=== PATIENT | male | born 1945 | race Caucasian/White ===

== ENCOUNTER 2017-10-03 09:41 | Inpatient (IN) | payer MEDICARE, OTHER ==
[~2017-10-03] VITALS: Ht 172.7 cm; Wt 106.3 kg
[~2017-10-03 09:41] MED LIST: ACTOS30 MG PO; ASPIR-LOW81 MG PO; CAPOTEN12.5 MG PO; CIPRO 250MG TA250 MG PO; COLACE 100100 MG/CAP PO; FORTAMET500 MG PO; GEMCOR600 MG PO; LASIX 40MG TABL40 MG PO; PERCOCET 5/321 UDTAB PO
[2017-10-03 10:38] LABS: INR 1.2 (0.8-3.0); PROTHROMBIN TIME 14.5 SECONDS (9.7-12.8)
[2017-10-03 10:40] LABS: POTASSIUM 4.5 mmol/L (3.4-5.0)
[2017-10-03 11:06] VITALS: BP 128/80; PULSE 110; TEMP 97.5
[2017-10-03 11:09] LABS: CALCIUM 9.5 mg/dL (8.4-10.2); CREATININE, serum 1.24 mg/dL (0.66-1.25); POTASSIUM 4.6 mmol/L (3.4-5.0)
[2017-10-03 11:15] LABS: THYROID STIMULATING HORMONE 1.81 uIU/mL (0.465-4.680)
[2017-10-03] MEDS ORDERED: GLUCOPHAGE500 MG/TAB PO (11:15)
[2017-10-03] MEDS ORDERED: JARDIANCE10 PO (11:15)
[2017-10-03] MEDS ORDERED: TOPROL XL100 MG PO ×2 (11:20→14:53)
[2017-10-03] MEDS ORDERED: MULTIPLE VITAMI1 CAP PO (11:21)
[2017-10-03] MEDS ORDERED: REVATIO20 MG PO (11:21)
[2017-10-03] MEDS ORDERED: OCUVITE1 TA1 PO (11:21)
[2017-10-03] MEDS ORDERED: ELIQUIS 5MG PO (11:22)
[2017-10-03] MEDS ORDERED: ZOCOR 40MG40 MG PO (11:22)
[2017-10-03 11:29] LABS: HEMOGLOBIN 17.4 g/dl (13.5-18.0); MEAN CELL VOLUME 91 fl (80.0-100.0); MEAN CORPUSCULAR HEMOGLOBIN 30 pg (27.0-31.0); MEAN CORPUSCULAR HGB CONC 33 g/dl (33.0-37.0); MEAN PLATELET VOLUME 11.6 fl (7.4-10.4); PLATELET COUNT 257 K/mm3 (130-400); RED BLOOD COUNT 5.73 M/mm3 (4.20-5.60); REDCELL DISTRIBUTION WIDTH-CV 12.8 % (11.5-14.5)
[2017-10-03 11:31] LABS: HEMATOCRIT 52.4 % (42.0-52.0)
[2017-10-03 11:37] VITALS: BP 134/92; PULSE 78
[2017-10-03 11:43] VITALS: BP 118/80; PULSE 73
[2017-10-03 12:57] VITALS: BP 134/82; PULSE 71; TEMP 97.4
[2017-10-03] MEDS ORDERED: LANTUS SOLOS100 U/ML SQ (14:50)
[2017-10-03] MEDS ORDERED: DIABETA 5MG5 MG/TAB PO (14:50)
[2017-10-03] MEDS ORDERED: JANUVIA 100MG100 MG PO (14:51)
[2017-10-03] MEDS ORDERED: AMOXICILLIN875 MG PO (14:51)
[2017-10-03] MEDS ORDERED: ASPIRIN 81M81 MG/TA2 PO (14:53)
[2017-10-03] MEDS ORDERED: TRICOR145 MG PO (14:54)
[2017-10-03] MEDS ORDERED: CAPOTEN 25MG25 MG PO (14:54)
[2017-10-03 16:00] VITALS: BP 153/90; PULSE 70; TEMP 97.6
[2017-10-03 20:06] VITALS: BP 128/70; PULSE 69; TEMP 98.2
[2017-10-04 01:00] VITALS: BP 133/68; PULSE 58; TEMP 97.5
[2017-10-04 04:07] VITALS: BP 132/70; PULSE 59; TEMP 97.8
[2017-10-04 07:15] LABS: INR 1.2 (0.8-3.0); PROTHROMBIN TIME 13.7 SECONDS (9.7-12.8)
[2017-10-04 09:54] VITALS: BP 122/66; PULSE 62; TEMP 97.6
[2017-10-04 11:54] VITALS: BP 141/72; PULSE 87; TEMP 97.8
[2017-10-04 15:42] VITALS: BP 151/83; PULSE 58; TEMP 97.3
[2017-10-04 19:34] VITALS: BP 158/88; PULSE 58; TEMP 97.3
[2017-10-05 00:53] VITALS: BP 155/85; PULSE 55; TEMP 97.2
[2017-10-05 04:07] VITALS: BP 167/76; PULSE 55; TEMP 97.4
[2017-10-05 07:14] LABS: CALCIUM 8.7 mg/dL (8.4-10.2); CREATININE, serum 1.07 mg/dL (0.66-1.25); MAGNESIUM 2.2 mg/dL (1.6-2.3); POTASSIUM 3.7 mmol/L (3.4-5.0)
[2017-10-05 08:04] VITALS: BP 130/87; PULSE 54; TEMP 98.5
[2017-10-05] MEDS ORDERED: BETAPACE 80MG80 MG PO (12:10)
[2017-10-05] MEDS ORDERED: CAPOTEN 25MG25 MG PO (12:11)
== END 2017-10-05 12:41 | disposition home or self-care (01) | DRG 310 ==
LOC: COL.CAR 09:41 → MEDICAL 13:12 → COL.CAR 16:21 → MEDICAL 16:26
PROVIDERS: Internal Medicine Cardiovascular Disease; Nurse Practitioner
PROC: 5A2204Z Restoration of Cardiac Rhythm, Single (ICD-10-PCS; principal; 2017-10-03)
DX: I48.0 Paroxysmal atrial fibrillation (principal); I25.10 Atherosclerotic heart disease of native coronary artery without angina pectoris; I10 Essential (primary) hypertension; E11.9 Type 2 diabetes mellitus without complications; Z87.891 Personal history of nicotine dependence
CPT/HCPCS: J1815

== ENCOUNTER 2017-11-20 08:50 | Day surgery (SDC) | payer OTHER ==
[~2017-11-20] VITALS: Ht 172.7 cm; Wt 104.5 kg
[~2017-11-20 08:50] MED LIST changes: +AMOXICILLIN875 MG PO; +ASPIRIN 81M81 MG/TA2 PO; +BETAPACE 80MG80 MG PO; +CAPOTEN 25MG25 MG PO; +DIABETA 5MG5 MG/TAB PO; +ELIQUIS 5MG PO; +GLUCOPHAGE500 MG/TAB PO; +JANUVIA 100MG100 MG PO; +JARDIANCE10 PO; +LANTUS SOLOS100 U/ML SQ; +MULTIPLE VITAMI1 CAP PO; +OCUVITE1 TA1 PO; +REVATIO20 MG PO; +TOPROL XL100 MG PO; +TRICOR145 MG PO; +ZOCOR 40MG40 MG PO
[2017-11-20 09:14] LABS: POTASSIUM 4.5 mmol/L (3.4-5.0)
[2017-11-20 09:20] VITALS: BP 134/112; PULSE 121; TEMP 97.8
[2017-11-20 09:49] LABS: THYROID STIMULATING HORMONE 2.64 uIU/mL (0.465-4.680)
[2017-11-20 10:34] VITALS: BP 154/113; PULSE 117
[2017-11-20] MEDS ORDERED: BETAPACE 80MG80 MG PO (10:43)
[2017-11-20 10:58] VITALS: BP 156/92; PULSE 78; TEMP 98.7
[2017-11-20 11:13] VITALS: BP 128/82; PULSE 72; TEMP 98.1
[2017-11-20 12:00] VITALS: BP 130/89; PULSE 75; TEMP 98
== END 2017-11-20 12:00 | disposition home or self-care (01) ==
LOC: COL.CAR 08:50
PROVIDERS: Internal Medicine Cardiovascular Disease
DX: I48.0 Paroxysmal atrial fibrillation (principal); I25.10 Atherosclerotic heart disease of native coronary artery without angina pectoris; I10 Essential (primary) hypertension; E11.9 Type 2 diabetes mellitus without complications; E78.00 Pure hypercholesterolemia, unspecified; Z79.01 Long term (current) use of anticoagulants; Z95.5 Presence of coronary angioplasty implant and graft; Z79.84 Long term (current) use of oral hypoglycemic drugs; Z87.891 Personal history of nicotine dependence
CPT/HCPCS: J2250; J3010; J7030

== ENCOUNTER 2017-11-28 12:14 | Day surgery (SDC) | payer OTHER, MEDICARE ==
[~2017-11-28] VITALS: Ht 172.8 cm; Wt 106.0 kg
[2017-11-28 12:28] LABS: HEMOGLOBIN 16.9 g/dl (13.5-18.0); MEAN CELL VOLUME 91 fl (80.0-100.0); MEAN CORPUSCULAR HEMOGLOBIN 29 pg (27.0-31.0); MEAN CORPUSCULAR HGB CONC 32 g/dl (33.0-37.0); PLATELET COUNT 289 K/mm3 (130-400); RED BLOOD COUNT 5.74 M/mm3 (4.20-5.60); REDCELL DISTRIBUTION WIDTH-CV 13.3 % (11.5-14.5)
[2017-11-28 12:29] LABS: HEMATOCRIT 52.3 % (42.0-52.0)
[2017-11-28 12:33] LABS: INR 1.1 (0.8-3.0)
[2017-11-28 12:38] LABS: CALCIUM 9.6 mg/dL (8.4-10.2); CREATININE, serum 1.32 mg/dL (0.66-1.25); POTASSIUM 4.8 mmol/L (3.4-5.0)
[2017-11-28 13:39] VITALS: BP 152/105; PULSE 130; TEMP 97.2
[2017-11-28] MEDS ORDERED: MULTAQ400 MG PO (14:54)
[2017-11-28 15:15] VITALS: BP 129/97; PULSE 113
[2017-11-28 15:30] VITALS: BP 123/95; PULSE 107
[2017-11-28 16:00] VITALS: BP 156/109; PULSE 111
== END 2017-11-28 16:30 | disposition home or self-care (01) ==
LOC: COL.CAR 12:14
PROVIDERS: Internal Medicine Cardiovascular Disease
DX: I48.0 Paroxysmal atrial fibrillation (principal); I48.91 Unspecified atrial fibrillation; I10 Essential (primary) hypertension; I25.10 Atherosclerotic heart disease of native coronary artery without angina pectoris; E78.00 Pure hypercholesterolemia, unspecified; Z79.01 Long term (current) use of anticoagulants; Z79.82 Long term (current) use of aspirin; I34.0 Nonrheumatic mitral (valve) insufficiency; R60.0 Localized edema; Z79.4 Long term (current) use of insulin
CPT/HCPCS: J0282; J7030

== ENCOUNTER 2017-12-24 11:31 | Day surgery (SDC) | payer OTHER ==
[~2017-12-24] VITALS: Ht 172.9 cm; Wt 99.9 kg
[~2017-12-24 11:31] MED LIST changes: +MULTAQ400 MG PO
[2017-12-24 12:31] LABS: HEMATOCRIT 47.1 % (42.0-52.0); HEMOGLOBIN 15.7 g/dl (13.5-18.0); MEAN CELL VOLUME 89 fl (80.0-100.0); MEAN CORPUSCULAR HEMOGLOBIN 30 pg (27.0-31.0); MEAN CORPUSCULAR HGB CONC 33 g/dl (33.0-37.0); MEAN PLATELET VOLUME 11.2 fl (7.4-10.4); PLATELET COUNT 209 K/mm3 (130-400); RED BLOOD COUNT 5.28 M/mm3 (4.20-5.60); REDCELL DISTRIBUTION WIDTH-CV 12.8 % (11.5-14.5)
[2017-12-24 12:40] LABS: CALCIUM 10.1 mg/dL (8.4-10.2); CREATININE, serum 2.11 mg/dL (0.66-1.25); POTASSIUM 4.8 mmol/L (3.4-5.0)
[2017-12-24 12:45] VITALS: BP 152/85; TEMP 97.7
[2017-12-24 12:46] LABS: INR 1.2 (0.8-3.0); PROTHROMBIN TIME 13.1 SECONDS (9.7-12.8)
[2017-12-24] MEDS ORDERED: K-DUR20 MEQ PO (12:58)
[2017-12-24] MEDS ORDERED: LASIX 40MG TABL40 MG PO (12:59)
[2017-12-24] MEDS ORDERED: ZOCOR 40MG40 MG PO (12:59)
[2017-12-24] MEDS ORDERED: CORDARONE200 MG/TAB PO (13:00)
[2017-12-24] MEDS ORDERED: GLUCOPHAGE1000 MG PO (13:02)
[2017-12-24] MEDS ORDERED: JARDIANCE10 PO (13:03)
[2017-12-24] MEDS ORDERED: TOPROL XL100 MG PO (13:04)
[2017-12-24] MEDS ORDERED: PRINIVIL40 MG PO (13:06)
[2017-12-24] MEDS ORDERED: TIAZAC240 MG PO (13:06)
[2017-12-24 13:30] VITALS: BP 127/75; PULSE 61
[2017-12-24 13:45] VITALS: BP 128/76; PULSE 64
[2017-12-24 14:00] VITALS: BP 131/79; PULSE 62; TEMP 97.5
== END 2017-12-24 15:37 | disposition home or self-care (01) ==
LOC: COL.CAR 11:31
PROVIDERS: Internal Medicine Cardiovascular Disease
DX: I48.0 Paroxysmal atrial fibrillation (principal); I50.33 Acute on chronic diastolic (congestive) heart failure; I11.0 Hypertensive heart disease with heart failure; I42.8 Other cardiomyopathies; I34.0 Nonrheumatic mitral (valve) insufficiency; Z87.891 Personal history of nicotine dependence; Z79.01 Long term (current) use of anticoagulants; Z79.82 Long term (current) use of aspirin; E78.00 Pure hypercholesterolemia, unspecified; I25.10 Atherosclerotic heart disease of native coronary artery without angina pectoris; Z98.61 Coronary angioplasty status; E11.9 Type 2 diabetes mellitus without complications; E78.5 Hyperlipidemia, unspecified; Z79.4 Long term (current) use of insulin; Z79.899 Other long term (current) drug therapy; I38 Endocarditis, valve unspecified; R06.83 Snoring
CPT/HCPCS: J2704; J7030

== ENCOUNTER 2019-09-18 16:10 | Inpatient (IN) | payer MEDICARE, OTHER ==
[~2019-09-18] VITALS: Ht 172.7 cm; Wt 107.2 kg
[~2019-09-18 16:10] MED LIST changes: +CORDARONE200 MG/TAB PO; +GLUCOPHAGE1000 MG PO; +K-DUR20 MEQ PO; +LASIX 20MG TABL20 MG PO; +PRINIVIL40 MG PO; +TIAZAC120 MG PO; +ZOCOR 80MG80 MG PO
[2019-09-18 18:17] VITALS: BP 134/97; PULSE 99; TEMP 98
[2019-09-18] MEDS ORDERED: LIPITOR 40MG TA40 MG PO (20:41)
[2019-09-18] MEDS ORDERED: TYLENOL 325MG325 MG PO (20:44)
[2019-09-18] MEDS ORDERED: DULCOLAX STOOL100 MG PO (20:46)
[2019-09-18] MEDS ORDERED: LEADER CLE17 GM/Dose PO (20:47)
[2019-09-18] MEDS ORDERED: ZOFRAN ODT4 MG PO (20:47)
[2019-09-18] MEDS ORDERED: HUMALOG100 U/ML SQ (20:50)
[2019-09-18] MEDS ORDERED: MELATONIN5 M1 PO (20:52)
--- NOTE | 2019-09-18 22:00 | NUR ---
RT HERE FOR CPAP. PLAN FOR TO BRING CPAP TOMORROW.
[2019-09-19 04:43] VITALS: BP 142/88; PULSE 92; TEMP 97.5
--- NOTE | 2019-09-19 05:20 | NUR ---
PT AWAKE. TOOK CPAP OFF FOR THE DAY. DENIES PAIN. WATCHING TV. USING URINAL. OCCASIONALLY SPILLS URINAL. DRY AT THIS TIME. CALL LIGHT IN PLACE. BED ALARM SET.
--- NOTE | 2019-09-19 07:57 | NUR ---
Bedside report from CHRISTINE Witt. Pt in bed sitting up for breakfast, call lt in reach, glasses in reach, yellow gown and band and socks in place, alarm on. Ate 100 %, denies pain, no difficulties with food or several pills at a time.
[2019-09-19 08:11] LABS: BASO # 0.1 (0.0-0.2); BASO % 0.6 % (0.0-2.0); EOS # 0.2 (0.0-0.7); EOS % 2.1 % (0-4.0); GRAN # 5.8 (1.4-6.5); GRAN % 59.7 % (42.2-75.2); HEMATOCRIT 44.4 % (42.0-52.0); HEMOGLOBIN 14.7 g/dl (13.5-18.0); LYMPH # 2.4 (1.2-3.4); MEAN CELL VOLUME 90 fl (80.0-100.0); MEAN CORPUSCULAR HEMOGLOBIN 30 pg (27.0-31.0); MEAN CORPUSCULAR HGB CONC 33 g/dl (33.0-37.0); MEAN PLATELET VOLUME 10.3 fl (7.4-10.4); MONO # 1.1 (0.1-0.6); MONO % 11.7 % (1.7-9.3); PLATELET COUNT 365 K/mm3 (130-400); RED BLOOD COUNT 4.91 M/mm3 (4.20-5.60); REDCELL DISTRIBUTION WIDTH-CV 12.4 % (11.5-14.5)
[2019-09-19 08:27] LABS: CALCIUM 9.6 mg/dL (8.4-10.2); CREATININE, serum 1.61 (0.66-1.25); POTASSIUM 3.8 mmol/L (3.4-5.0)
--- NOTE | 2019-09-19 10:50 | NUR ---
Initial visit attempt; Patient Chaplain martin left her card with God's blessings on his bed table.
--- NOTE | 2019-09-19 14:28 | NUR ---
Student Affairs Vice President met with patient to complete initial intake as patient is new to [facility]. Patient lives in [place] with his , Zulma (ph#[phone] or [phone]). Patient [address]. Luo for primary care and obtains medications from [facility] pharmacy in [place] with no difficulties. Patient uses a CPAP and not other DME at home. Patient does not have Advance Directives in place and may be interested in getting assistance with this during stay. SW to continue to follow.
[2019-09-19 17:38] VITALS: BP 134/77; PULSE 70; TEMP 97.6
--- NOTE | 2019-09-19 20:00 | NUR ---
PATIENT RESTING IN BED DURING SHIFT CHANGE REPORT FROM DAY SHIFT NURSE. BED ALARM ENGAGED. PATIENT DENIES ANY NEEDS AT TIME OF REPORT.
--- NOTE | 2019-09-19 20:20 | NUR ---
Prior to bedside report to CHRISTINE Coulter. Pt was assisted from chair to BSC with 2 assist and lift, only passed gas, was incont of urine, changed, to bed with lift, SCDs to BLE, glasses removed, pt ok'd 4 bedrails up, alarm on, call lt in reach, A&O, pleasantly cooperative and conversational. Family visited this morning. Pt denies pain. Weakness to Left side extremities. Good appetite, adv to regular consistency diet today per ST.
--- NOTE | 2019-09-20 03:29 | NUR ---
RESTING WITH EYES CLOSED, BED ALARM ENGAGED, AWAKENS WITH ENTERING IN ROOM, DENIES ANY NEEDS WHEN AWAKEN
[2019-09-20 04:55] VITALS: BP 138/83; PULSE 77; TEMP 97.1
--- NOTE | 2019-09-20 07:24 | NUR ---
PATIENT RESTING IN BED DURING SHIFT CHANGE REPORT GIVEN TO DAY SHIFT NURSE. BED ALARM ENGAGED
--- NOTE | 2019-09-20 11:44 | NUR ---
Patient attended all therapies this morning. He is currently resting in recliner at this time, call light in reach and denies any pain. He did report being very tired following his therapy. Will continue to monitor.
[2019-09-20 18:20] VITALS: BP 135/83; PULSE 72; TEMP 97.9
--- NOTE | 2019-09-20 18:30 | NUR ---
Patient attended all therapies today. This nurse placed an air mattress on bed this afternoon. He was a full body lift this shift. He was very weak upon his return from therapy today. Was very sleepy through day reporting that he can sleep anywhere. He was set up for his meals. Was very talkative this talking about his family life.
--- NOTE | 2019-09-20 20:00 | NUR ---
PATIENT RESTING IN BED DURING SHIFT CHANGE REPORT FROM DAY SHIFT NURSE. BED ALARM ENGAGED. DENIES ANY NEEDS OR COMPLAINTS.
--- NOTE | 2019-09-21 00:30 | NUR ---
RESTING IN BED, AWAKE, WATCHING TV, DENIES ANY DISCOMFORT OR NEEDS. BED ALARM ENGAGED
--- NOTE | 2019-09-21 02:38 | NUR ---
PATIENT AWAKE WATCHING TV, REPORTS HE SLEEPS FOR SHORT PERIODS THROUGH NIGHT. BED ALARM ON. DENIES ANY COMPLAINTS OR NEEDS AT THIS TIME.
[2019-09-21 05:11] VITALS: BP 136/81; PULSE 67; TEMP 98.3
--- NOTE | 2019-09-21 07:36 | NUR ---
PATIENT RESTING IN BED DURING SHIFT CHANGE REPORT GIVEN TO DAY SHIFT NURSE. BED ALARM ON.
--- NOTE | 2019-09-21 11:28 | NUR ---
Two staff members used a sit to stand to transfer patient this morning from bed to wheelchair. Patient was incontinent of urine and was cleaned up and new brief was put on. Patient wanted to do his grooming at the sink. He was a set up and required staff to put the toothpaste on his toothbrush. He denied any pain this morning. Patient was just a two person transfer from wheelchair to recliner using gait belt and walker. He is currently resting in recliner eating one of his [employer] candy bars.
[2019-09-21 17:33] VITALS: BP 141/80; PULSE 78; TEMP 97.3
--- NOTE | 2019-09-21 19:00 | NUR ---
PATIENT UP IN CHAIR DURING SHIFT CHANGE REPORT FROM DAY SHIFT NURSE. CHAIR ALARM ON.
--- NOTE | 2019-09-21 20:00 | NUR ---
CONTINUES TO HAVE WEAKER L HAND DRIP COMPARED TO RIGHT. LUE WEAK/PARTIAL AROM TO L SHOULDER/SOME AT ELBOW WITH NO STRENGTH TO LFA. REPORTS SOME TACTILE SENSATION TO LUE/LHAND TO TOUCH.
--- NOTE | 2019-09-21 22:00 | NUR ---
PATIENT PUT BACK TO BED VIA LIFT WITH X2 STAFF ASSIST, PATIENT TIRED BUT TOLERATED INCONTINENT (URINE) CARE AND PLACEMENT IN TO BED. SCD APPLIED. BED ALARM ON.
--- NOTE | 2019-09-22 01:26 | NUR ---
PATIENT RESTING IN BED WITH EYES CLOSED, AWAKENS WHEN ROOM ENTERED WITH NO COMPLAINTS REPORTED. BED ALARM ON.
[2019-09-22 04:05] VITALS: BP 130/76; PULSE 80; TEMP 97.8
--- NOTE | 2019-09-22 04:07 | NUR ---
PATIENT TURNED FROM SIDE TO SIDE FOR INCONTINENT CARE, APPLIED NEW ADULT DIAPERS WITH MALE PADS W/ ASST. BED ALARM ON.
--- NOTE | 2019-09-22 08:07 | NUR ---
PATIENT RESTING IN BED DURING SHIFT CHANGE REPORT GIVEN TO DAY SHIFT NURSE. BED ALARM ON.
--- NOTE | 2019-09-22 15:54 | NUR ---
SW met with the patient to introduce oneself and to follow up after the weekend. The patient states that he is comfortable. He states that therapy has been hard, but going okay. He had no other questions or concerns for SW at this time. SW to continue to follow.
[2019-09-22 16:11] VITALS: BP 138/78; PULSE 80; TEMP 97.2
--- NOTE | 2019-09-22 18:18 | NUR ---
Bedside report from CHRISTINE Coulter. Pt was awake in bed, alert, oriented, denies pain, CPAP off at bedside. Pt was assisted to chair by Marylin after report with lift. Pt instructed this nurse how to use his home cleaning system for his CPAP mask, completed. Family visited earlier this evening. Pt was returned to bed with alarm on, call lt in reach, and CPAP on. Melatonin increased as pt concerned about daytime drowsiness and being restless at [employer] [place].
--- NOTE | 2019-09-22 20:00 | NUR ---
HS meds all reviewed and given. Patient denies pain or needs. MELTER ASSISTANT assists into gown for the night.
--- NOTE | 2019-09-22 22:12 | NUR ---
Patient rests with eyes closed. Respirations with ease.
--- NOTE | 2019-09-23 02:33 | NUR ---
Patient awake and denies need for toileting. Hasn't worn cpap and reminded. States he may put it on shortly.
[2019-09-23 04:57] VITALS: BP 145/77; PULSE 89; TEMP 98.1
--- NOTE | 2019-09-23 12:28 | NUR ---
Pt's alarm going off. He had transferred himself from recliner to wheelchair, sitting awkwardly, edu pt on safety. He is at sink in wc w/ brakes locked to brush his teeth.
--- NOTE | 2019-09-23 14:09 | NUR ---
Admission QIM scores were reviewed by the team. Code of 3 chosen for oral hygiene was determined by team discussion to be the most usual performance before interventions for this patient during the assessment period. Code of 2 chosen for upper body dressing was determined by team discussion to be the most usual performance before interventions for this patient during the assessment period. Code of 2 chosen for rolling left to right was determined by team discussion to be the most usual performance for this patient during the assessment period. Code of 1 chosen for sit to stand was determined by team discussion to be the most usual performance for this patient during the assessment period.--Criselda Beckwith, PD
--- NOTE | 2019-09-23 14:55 | NUR ---
MICK contacted the patient's , Zulma, to schedule a family meeting. A family meeting was schedule for this Sunday, 09/26, at 1300. MICK informed IPR Director. MICK also explained the IM form to the patient's . The patient's gave MICK her verbal consent. MICK placed a copy of the form in the patient's room and informed the patient's of this.
[2019-09-23 15:53] VITALS: BP 134/77; PULSE 77; TEMP 97.2
--- NOTE | 2019-09-23 18:16 | NUR ---
Sustained skin tear to left hand ring finger, pt did not feel it, his hand may have scraped the wheelchair brake as there was blood on this area. Cleansed at sink with soap and water, patted dry, applied steris to skin flaps and telfa and secured with two strips of tegaderm. Pt beronica well. Being assisted to bed by BALE COVERER.
--- NOTE | 2019-09-23 19:31 | NUR ---
Bedside report to CHRISTINE Brown. Pt in bed wiht CPAP and alarm on, given call lt in reach, SCDs to BLE. Reviewed safety/fall risk precautions. Pt verbalized understanding not to get up on his own.
--- NOTE | 2019-09-23 21:30 | NUR ---
Patient has been resting with eyes closed and CPAP on. Awakened for HS meds and reviewed and given. Declines snack and HS care. Continent at this time, attends on and urinal emptied. Legs repositioned in bed. Returns to resting with eyes closed. SCD's on.
--- NOTE | 2019-09-24 02:37 | NUR ---
Patient awakened for toileting. Incontinent of urine and changed. Requested snack of glucerna and given. Denies pain. Wore CPAP until this time.
[2019-09-24 03:00] VITALS: BP 142/53; BP 142/83; PULSE 68; PULSE 86; TEMP 97.1
--- NOTE | 2019-09-24 05:27 | NUR ---
Patient heavy mod assist with walker to wheelchair/unsteady and stumples to left side. Does am care at sink. Used urinal and attends changed.
--- NOTE | 2019-09-24 08:32 | NUR ---
Pt c/o raspy voice, cough. States he would take an aspirin and cough drops at home, given tylenol and warm salt water gargle.
--- NOTE | 2019-09-24 16:49 | NUR ---
SW attempted to meet with the patient to present and review the IPR Team Conference Note. The patient was sleeping. SW then attempted to contact the patient's , Lior, at both [phone] and [phone]. The [phone] number was disconnected. Another individual answered the [phone] number and stated that Zulma was busy. SW to attempt to contact Zulma tomorrow, 09/25. The clinical team is recommending to re-eval the patient next Sunday. SW to continue to follow.
[2019-09-24 17:15] VITALS: BP 129/80; PULSE 70; TEMP 97.1
--- NOTE | 2019-09-24 20:00 | NUR ---
PATIENT RESTING IN BED WITH EYES CLOSED DURING SHIFT CHANGE REPORT GIVEN BY DAY SHIFT NURSE. BED ALARM ON.
--- NOTE | 2019-09-24 20:13 | NUR ---
Shift summary: Bedside report from CHRISTINE Brown. Pt's diet increased to 2000 lisa ADA/AHA per RD Bailey. Plan to re-eval pt next week. Pt has poor safety awareness, commenting about leaving tomorrow to resume life per usual, eg. snowblowing the walk. Changed dressing to skin tear on left hand ring finger. Pt cont having numbness to LUE. Assisted to bed by CERAMIST prior to shift change. Bed alarm on. Bedside report to CHRISTINE Coulter. Pt declined any more doses of tylenol for "cold".
--- NOTE | 2019-09-25 01:40 | NUR ---
PATIENT RESTING QUIETLY WITH EYES CLOSED, CPAP ON, DOES NOT AWAKEN WITH ROOM ENTERED. BED ALARM ON.
[2019-09-25 03:59] VITALS: BP 124/87; PULSE 73; TEMP 97.1
--- NOTE | 2019-09-25 07:24 | NUR ---
Patient up in wheel chair during shift change report given to day shift nurse. Chair alarm on.
--- NOTE | 2019-09-25 09:39 | NUR ---
Patient attending therapies this morning. Ate well this morning. Had a large continent BM this morning. Patient talking about his time in the with this nurse. Patient in pleasent mood. He was set up for his meal this morning and was able to eat independently. He like to do things himself.
[2019-09-25 15:29] VITALS: BP 128/72; PULSE 68; TEMP 97.3
--- NOTE | 2019-09-25 20:07 | NUR ---
Patient attended all therapies this shift. He was a two person assist with toileting this shift. He is able to get up from a sitting position on his own using gait belt and walker. He is unsteady at times so required CGA. He has an abrasion to his left hand due to not remembering to lift it up when wheeling his wheelchair. Bandage is in place at this time. Patient very talkative this morning. He was clear on his speaking. Denied pain this shift. Family stopped by to see him today. Discussed needing to get a copy of his home med list from PCP Dr. Aden in [place], [place]. Also discussed the fact that he will need to get training on insulin injections, since his reported that she does not give them. Discussed him using an insulin pen and just needing assistance with getting the needle on the insulin pen to be able to give himself insulin injections. He tolerated his diet very well this shift. He was sleepy this afternoon, but seemed to be less then he was a few days ago. Will continue to monitor.
--- NOTE | 2019-09-25 21:00 | NUR ---
PT DOZING IN RECLINER. VERY TIRED TONIGHT. ENC TRANSFER TO BED TO CHANGE INCONTINENT BLADDER/DIAPERS. PT PIVOT TRANSFER W/ 1 ASSIST W/WALKER. WEAK GAIT. NEEDED HELP LIFTING LEGS INTO BED. REFUSED SCD'D. OK FOR CPAP- PLACED AND TURNED ON. CALL LIGHT IN REACH. SEE MAR FOR SSI.
--- NOTE | 2019-09-26 04:30 | NUR ---
PT DIAPER WET. CLEANED UP AND CHANGED. ASSISTED PT WITH CLOTHING. ASSISTED PT TO WC THEN TO SINK TO WASH AND SHAVE. CHAIR ALARM ON. REMINDED PT NOT TO TRANSFER OR STAND PER SELF. PT AGREED.
--- NOTE | 2019-09-26 05:27 | NUR ---
PT COMPLIANT WITH SAFETY. WATCHING TV DRINKING DECAF COFFEE. DENIES NEEDS AT THIS TIME.
[2019-09-26 05:32] VITALS: BP 130/74; PULSE 71; TEMP 97.5
[2019-09-26 07:31] LABS: BASO # 0.1 (0.0-0.2); BASO % 0.7 % (0.0-2.0); EOS # 0.2 (0.0-0.7); EOS % 3.1 % (0-4.0); GRAN # 4.7 (1.4-6.5); GRAN % 63.5 % (42.2-75.2); HEMATOCRIT 42.2 % (42.0-52.0); HEMOGLOBIN 13.8 g/dl (13.5-18.0); LYMPH # 1.6 (1.2-3.4); LYMPH % 21.9 % (20.0-51.0); MEAN CELL VOLUME 92 fl (80.0-100.0); MEAN CORPUSCULAR HEMOGLOBIN 30 pg (27.0-31.0); MEAN CORPUSCULAR HGB CONC 33 g/dl (33.0-37.0); MEAN PLATELET VOLUME 10.8 fl (7.4-10.4); MONO # 0.7 (0.1-0.6); MONO % 9.7 % (1.7-9.3); PLATELET COUNT 334 K/mm3 (130-400); RED BLOOD COUNT 4.57 M/mm3 (4.20-5.60); REDCELL DISTRIBUTION WIDTH-CV 12.6 % (11.5-14.5)
[2019-09-26 07:36] LABS: CALCIUM 9.7 mg/dL (8.4-10.2); CREATININE, serum 1.52 (0.66-1.25); POTASSIUM 4.4 mmol/L (3.4-5.0)
--- NOTE | 2019-09-26 09:41 | NUR ---
Patient working with therapy. Denied pain this morning. He is very alert and not impulsive. Tolerated breakfast well. Bandage to left hand was replaced last night by CHRISTINE Witt. Patient denies any questions this morning.
--- NOTE | 2019-09-26 13:55 | NUR ---
Per patient's 's request I called PCP Courtney Luo in [place] to get a current med list. wanted to see if any of the patient's meds had changed since he had been admitted to the hospital. will be updated on this.
--- NOTE | 2019-09-26 16:22 | NUR ---
MICK met with the patient, his (Zulma), and son to follow up with before the weekend. The patient states that he is doing well. His states that she will not be able to be up here next Sunday after team meetings to review notes. SW to contact Zulma after team meetings. The patient and his had no other questions or concerns for SW at this time. SW to continue to follow.
[2019-09-26 16:57] VITALS: BP 145/94; PULSE 82; TEMP 97.9
--- NOTE | 2019-09-26 20:20 | NUR ---
This nurse received home med list from PCP yesterday. The day nurse will need to compare those meds with patients current meds given. would like to know if there are any new meds. will be bringing in his home meds tomorrow for nurse to see as well.
--- NOTE | 2019-09-26 21:00 | NUR ---
PT SITTING UP IN RECLINER. NOT READY TO GO TO BED. DENIES PAIN. REMINDED PT OF LT ARM NEGLECT/ CARE. PT INCONT IN BRIEFS AT TIMES. USES URINAL AT TIMES. CHAIR ALARM SET. CALL LIGHT IN REACH.
[2019-09-27 05:17] VITALS: BP 127/71; PULSE 75; TEMP 97.3
[2019-09-27] MEDS ORDERED: CATAPRES-TTS 10.1 M1 TD (13:12)
[2019-09-27] MEDS ORDERED: LEVEMIR SQ (13:13)
[2019-09-27] MEDS ORDERED: PRESERVISION1 SGL PO (13:17)
[2019-09-27] MEDS ORDERED: OZEMPIC0.25 MG/0. SQ (13:33)
--- NOTE | 2019-09-27 14:43 | NUR ---
brought home meds and reviewed current med list with this nurse. Copy of paperwork reflecting this on chart.
[2019-09-27 15:56] VITALS: BP 149/90; PULSE 77; TEMP 97.2
--- NOTE | 2019-09-27 19:22 | NUR ---
Pt in bed at shift change, turned alarm on, meds given, set up CPAP, pt donned. Report to CHRISTINE Witt.
--- NOTE | 2019-09-27 21:00 | NUR ---
PT RESTING IN BED WITH LT SIDED WEAKNESS/ NEGLECT. PT REPORTS HARDLY DRINKING ANY THING. DOESNT KNOW WHERE ALL THIS FLUID IS COMING FROM. DENIES PAIN. WEARING CPAP.
--- NOTE | 2019-09-28 04:00 | NUR ---
PT INCONT URINE. CHANGED DIAPER. ASSISTED TO W/C PT ABLE TO MOVE IN WC TO SINK FOR INDEPENDENT AM CARES. NEEDED ASSIST IN DONING PANTS AND SLIPPERS. CHAIR ALRM SET. CALL JUAAN REACH. WATCHING TV.
[2019-09-28 05:37] VITALS: BP 119/78; PULSE 90; TEMP 97.5
[2019-09-28 17:22] VITALS: BP 142/76; PULSE 83; TEMP 97.1
--- NOTE | 2019-09-28 20:00 | NUR ---
PT RESTING IN BED WITH CPAP IN PLACE. DOZING. REFUSING SCD'S ANT LONGER. CONT LT SIDED WEAKNESS AND SENSATION. REQADY FOR SLEEP. CALL LIGHT IN REACH. BED ALARM SET,
--- NOTE | 2019-09-29 05:12 | NUR ---
PT AWAKE. INCONTINENT OF URINE. CLEANED UP AND ASSISTED WITH DRESSING. POOR FINE MOTOTR SKILLS D/T LT SIDED WEAKNESS. ASSISTED TO WC. PT ABLE TO MOVE TO SINK FOR AM CARES- INDEPENDENTLY. WASHED FACE AND BRUSHED TEETH. CHAIR ALARM ON. CALL LIGHT IN REACH.
[2019-09-29 05:29] VITALS: BP 154/94; PULSE 88; TEMP 97.5
--- NOTE | 2019-09-29 09:45 | NUR ---
Patient attending therapies this morning. Denies pain and questions this morning.
--- NOTE | 2019-09-29 13:09 | NUR ---
Patient working with therapy at this time. He is set up for meals and staff assisted him with cutting up his meat for lunch. Patient was a one person touch assist with transferring with walker to the bathroom this am. Patient denies pain.
--- NOTE | 2019-09-29 15:15 | NUR ---
MICK met with the patient to follow up after the weekend. The patient states that he is doing well. Watching the news. He states the he hopes to be able to discharge this Sunday, 10/03, but wants to do what is best for him and what the team recommends. He had no other questions at this time. SW to continue to follow.
--- NOTE | 2019-09-29 15:18 | NUR ---
Patient resting in recliner at this time watching TV.
[2019-09-29 16:46] VITALS: BP 134/83; PULSE 81; TEMP 97.4
--- NOTE | 2019-09-29 17:58 | NUR ---
Patient reported that his fell when she was at home today. He is worried about her and is wanting to go home soon so that they can take care of each other. He seems a little anxious this afternoon. Will continue to monitor.
--- NOTE | 2019-09-29 20:00 | NUR ---
PATIENT AMB FROM BATHROOM AND PUT TO BED DURING SHIFT CHANGE REPORT FROM DAY SHIFT NURSE. BED ALARM ON.
--- NOTE | 2019-09-30 01:30 | NUR ---
RESTING IN BED WITH EYES CLOSED, DOES NOT AWAKEN WHEN ROOM ENTERED. BED ALARM ON.
--- NOTE | 2019-09-30 03:37 | NUR ---
PATIENT RESTING IN BED QUIETLY, WATCHING TV AT THIS TIME. DENIES ANY NEEDS CURRRENTLY. BED ALARM ON.
[2019-09-30 04:02] VITALS: BP 156/91; PULSE 92; TEMP 97.6
--- NOTE | 2019-09-30 07:23 | NUR ---
PATIENT UP IN W/C DURING SHIFT CHANGE REPORT GIVEN TO DAY SHIFT NURSE. CHAIR ALARM SET UP.
--- NOTE | 2019-09-30 10:17 | NUR ---
Patient attending therapies this morning. Denies pain this shift. Washes face, brushes teeth and combes his hair independently in his wheelchair. Denied questions this morning.
[2019-09-30 16:03] VITALS: BP 123/68; PULSE 77; TEMP 97.8
--- NOTE | 2019-09-30 19:45 | NUR ---
PATIENT UP IN RECLINER CHAIR DURING SHIFT CHANGE REPORT FROM DAY SHIFT NURSE. CHAIR ALARM ON.
--- NOTE | 2019-09-30 20:30 | NUR ---
Patient attended all therapies today. He was observation with sit to stand. He did his own grooming this morning when sitting in wheelchair. He has been doing his hand planting material remover exercises on a regular basis and bilateral hand miller head wet process were equal this shift. SW talked with patient today about options available for a med alert button for him and his . SW will be stopping by tomorrow to further discuss this. Patient had two large bowel movements this shift that were continent. Skin tear to left ring finger is healing and has been left open to air. This nurse gave report to night nurse.
--- NOTE | 2019-10-01 02:00 | NUR ---
RESTING IN BED, WATCHING TV, NO COMPLAINTS OR NEEDS REPORTED. BED ALARM ON.
[2019-10-01 04:30] VITALS: BP 137/73; PULSE 77; TEMP 97.6
--- NOTE | 2019-10-01 07:30 | NUR ---
PATIENT UP IN W/C DURING SHIFT CHANGE REPORT GIVEN TO DAY SHIFT NURSE. CHAIR ALARM ON.
--- NOTE | 2019-10-01 12:41 | NUR ---
Bedside report from CHRISTINE Coulter. Pt dressed in wheelchair, amb w/ walker unsteadily, cues for safety
--- NOTE | 2019-10-01 15:28 | NUR ---
MICK met with the patient to present and review the IPR Team Conference Note. MICK discussed the team's recommendation of home health PT/OT with a tentative discharge date set for next Sunday, 10/10. The patient was in agreeance to this. He states that he plans to contact his to update her of the plan. MICK answered all questions. SW to provide the patient with Medicare.gov's list of home health agencies that serve [place] and will continue to follow. The patient's RN, Nancy, informed MICK yesterday that the patient was interested in information on life alerts. MICK provided the patient with brochures for the different life alerts companies yesterday, 09/30.
[2019-10-01 16:37] VITALS: BP 130/64; PULSE 86; TEMP 97.8
--- NOTE | 2019-10-01 19:27 | NUR ---
Bedside report to CHRISTINE Witt. Pt in chair with alarm on, call lt in reach, grippers and glasses in place, urinal in reach.
--- NOTE | 2019-10-01 21:00 | NUR ---
PT SLEEPY IN RECLINER. TRYING TO STAY UP SO HE CAN SLEEP THROUGH THE NIGHT. PT C/O CONSTIPATION- SEE OCT. WILL GIVE SENOKOT AND SCHEDULED COLACE AT HS. PT PANTS AND BOTTOM OF SHIRT WET FOR BLADDER INCONTINENCE. PT DENIED HE WAS WET. ASSISTED TO BED. CLEANED UP. CPAP STARTED. BED ALARM SET. CALL LIGHT IN REACH.
[2019-10-02 05:35] VITALS: BP 103/62; PULSE 73; TEMP 97.8
[2019-10-02 15:06] VITALS: BP 132/70; PULSE 87; TEMP 95.6
--- NOTE | 2019-10-02 15:12 | NUR ---
Pt pale today, more fatigued, toileted, enc to return to bed with CPAP and BLE elevated, increased edema to extremities today. Bed alarm on, call lt in reach, bed alarm on.
--- NOTE | 2019-10-02 17:16 | NUR ---
Notified Dr. Castillo that pt has not been doing as well today, more fatigued, pale, and TERENCE Mendez reports pt smeared black BM. See lab orders.
[2019-10-02 18:00] LABS: BASO % 0.5 % (0.0-2.0); EOS # 0.1 (0.0-0.7); EOS % 1.5 % (0-4.0); GRAN # 5.6 (1.4-6.5); GRAN % 66.8 % (42.2-75.2); LYMPH # 1.7 (1.2-3.4); LYMPH % 20.6 % (20.0-51.0); MEAN CELL VOLUME 93 fl (80.0-100.0); MEAN CORPUSCULAR HGB CONC 32 g/dl (33.0-37.0); MONO # 0.8 (0.1-0.6); MONO % 9.1 % (1.7-9.3); PLATELET COUNT 240 K/mm3 (130-400); RED BLOOD COUNT 2.96 M/mm3 (4.20-5.60); REDCELL DISTRIBUTION WIDTH-CV 13.2 % (11.5-14.5)
[2019-10-02 18:04] LABS: HEMATOCRIT 27.6 % (42.0-52.0); HEMOGLOBIN 8.9 g/dl (13.5-18.0); MEAN CORPUSCULAR HEMOGLOBIN 30 pg (27.0-31.0)
[2019-10-02 18:10] LABS: CALCIUM 8.9 mg/dL (8.4-10.2); CREATININE, serum 1.7 (0.66-1.25); POTASSIUM 4.9 mmol/L (3.4-5.0)
--- NOTE | 2019-10-02 18:18 | NUR ---
Reported to Dr. Castillo pt's H&H, [facility] tomorrow
--- NOTE | 2019-10-02 19:00 | NUR ---
SHIFT REPORT FROM ALBA VALDEZ RN. PT IN BED ASLEEP. CPAP ON. PT VERY FATIGUED. PT PALE. CALL LIGHT IN REACH. BED ALARM SET.
--- NOTE | 2019-10-02 20:23 | NUR ---
LETHARGIC. ANSWERS QUESTIONS APPROPRIATELY. PT RELATES HE IS VERY TIRED. RESTING IN BED. CPAP IN PLACE. DENIES PAIN. CALL LIGHT IN REACH BED ALARM SET.
[2019-10-03] VITALS (19 sets, daily range): BP systolic 89–129; BP diastolic 45–76; PULSE 94–109; TEMP 97–99.5
--- NOTE | 2019-10-03 | NUR ---
PT AWAKE. RELATES HE FEELS BETTER. DISCUSSED PLAN FOR LAB IN AM. STILL NEED A STOOL SPECIMEN. PT INCONT URINE IN BRIEFS. CLEANED UP AND REPOSITIONED. DENIES PAIN. CPAP BACK ON READY FOR MOR SLEEP.
--- NOTE | 2019-10-03 04:54 | NUR ---
PT AWAKE. WANTS TO GET UP. PT VERY PALE. PT HAS PERIORBITAL EDEMA. INCREASED GENERALIZED EDEMA. PT ALITTLE DIZZY WHEN STANDING. TRANSFER TO . PT MOVE HIMSELF TO SINK FOR AM CARES.
--- NOTE | 2019-10-03 05:45 | NUR ---
NOTIFIED DR GARCIA OF STATUS- HYPOTENSIVE. NEW ORDERS IVF'S AND 1 UNIT PRBS.
--- NOTE | 2019-10-03 06:03 | NUR ---
ATTEMPTED IV START X2 NURSES. NOTIFIED HOUSE SUPEVISOR.
[2019-10-03 07:10] LABS: HEMATOCRIT 23.6 % (42.0-52.0); HEMOGLOBIN 7.7 g/dl (13.5-18.0)
--- NOTE | 2019-10-03 07:12 | NUR ---
Lying in bed with eyes open. Alert and oriented x3. Patient denies pain. Explains that he just feels tired and dizzy at times. Skin color pale. Bruising noted to left arm. Bandaid intact to left knuckles. Pupils equal and reactive to light. IV in right thumb infusing NS at 100mL/hr. Patient denies needs at this time.
--- NOTE | 2019-10-03 07:22 | NUR ---
SHIFT REPORT GIVEN TO WADE KING. PT RELATED DID NOT WANT HIS CALLED AT THIS TIME. LAB CALLED- [facility] 7[facility]. WADE KING NOTIFIED OF THIS.
--- NOTE | 2019-10-03 09:58 | NUR ---
PRBC verified by this nurse and CHRISTINE Fair. Infusion started at 60mL/hr into right upper arm PICC. Patient educated on reactions to monitor for.
--- NOTE | 2019-10-03 10:15 | NUR ---
Patient tolerates initial 15 minutes of blood transfusion without difficulty, no adverse reactions noted, vital signs stable. Rate for infusion increased to 150mL/hr. Patient says he feels like he has mucus in his throat. Encouraged patient to cough and try to get mucous out. Patient denies needs at this time.
--- NOTE | 2019-10-03 10:46 | NUR ---
Vital signs stable at this time. Patient lying in bed with eyes closed, respirations even and unlabored, no signs or symptoms of discomfort noted. Blood transfusion continues to infuse at 150mL/hr. Reviewed vital signs with Dr. Castillo, temp has increased a little bit, and Dr. Castillo says that it is fine and continue infusion.
--- NOTE | 2019-10-03 11:25 | NUR ---
Lying in bed with eyes closed. Opens eyes when name called out. Denies pain or concerns. Says that he feels the same at this time. Discussed that they should be coming from surgery to take him down for his procedure in a little bit as he is scheduled at 1200. Blood transfusion remains at 150mL/hr. Vital signs stable and no signs or symptoms of adverse reaction noted at this time.
--- NOTE | 2019-10-03 12:14 | NUR ---
Infusion complete. No adverse reactions noted. Patient to endoscopy at this time via bed by endoscopy staff.
--- NOTE | 2019-10-03 13:26 | NUR ---
Patient broght back to room via bed by endoscopy staff. Patient alert and oriented x3. Denies pain. Explains that he is happy they were able to find and fix the issue. Patient has a little bit of pink color to cheeks. Provided ice chips at this time.
[2019-10-03 13:34] LABS: HEMATOCRIT 22.6 % (42.0-52.0); HEMOGLOBIN 7.5 g/dl (13.5-18.0)
--- NOTE | 2019-10-03 14:08 | NUR ---
MICK met with the patient to follow up before the weekend. The patient reports that he had a set back. States that he had a bleed and had to have an endoscopy today. He states that he is starting to feel a bit better now. The patient asked to look over Medicare.gov's list of the different home health agencies that serve [place] again. The patient chose [facility]. MICK contacted and faxed a referral to the [facility] [place] [facility] (fax#[phone]). SW awaiting their screen.
--- NOTE | 2019-10-03 15:12 | NUR ---
PT. CALLS UP TO BSC W/X1 MOD ASSIST FOR BM AND VOID;STOOL SPEC ORDERED TO LAB.
--- NOTE | 2019-10-03 15:36 | NUR ---
Patient up to bedside commode with assist of one and use of walker. Gait slow. Patient denied any dizziness with position changes. Returned to bed and says that it wore him out. Had large bowel movement. Patient says he overall feels better but jsut tires easily. Denies further needs at this time.
--- NOTE | 2019-10-03 17:02 | NUR ---
reported post-ops to RN
--- NOTE | 2019-10-03 20:30 | NUR ---
Patient has been resting with cpap on. Awakened for HS meds and reviewed and given. Denies pain. Declines snack. Assisted to place and empty urinal and inner pad changed. Returns to resting with cpap on.
--- NOTE | 2019-10-03 21:30 | NUR ---
DR. Bowers notified of patient critical lab value hgb 6.8 and HCT 20.6 and informed of EGD results today and receiving of 1 Unit PRBCs. New orders received to stop IVF's and administer 1 unit PRBCs. Lab notified.
[2019-10-03 21:31] LABS: HEMATOCRIT 20.6 % (42.0-52.0); HEMOGLOBIN 6.8 g/dl (13.5-18.0)
--- NOTE | 2019-10-03 22:43 | NUR ---
Reviewed orders for PRBC's due to hgb 6.8 with patient. Reviewed signs and symptoms to report for adverse transfusion reaction. Patient voices understanding. PRBC's begun after verification by 2 RNs to PICC RENAY easley.
--- NOTE | 2019-10-03 23:32 | NUR ---
Patient has been resting with eyes closed. CPAP on. PRBC's infuse at 115mls/hr via PICC line RUE without problems. No signs or symptoms of adverse reaction.
[2019-10-04] VITALS: BP 104/64; PULSE 96; TEMP 97.3
[2019-10-04 01:00] VITALS: BP 117/73; PULSE 99; TEMP 97.3
[2019-10-04 01:49] VITALS: BP 115/68; PULSE 95; TEMP 96.7
--- NOTE | 2019-10-04 01:50 | NUR ---
PRBC'S finished infusing. No signs or symptoms of adverse reactions. PICC line patent and without redness or swelling. VSS. Patient dozing off and on with CPAP on. Uses urinal and nurse empties.
--- NOTE | 2019-10-04 03:21 | NUR ---
Patient awake and removed CPAP/takes sips of water. Repositioned self side to side. Incontinent of urine and urinal emptied. Patients attends changed. Denies pain or needs.
[2019-10-04 04:04] VITALS: BP 130/73; PULSE 105; TEMP 97.2
[2019-10-04 06:11] LABS: BASO % 0.4 % (0.0-2.0); EOS # 0.1 (0.0-0.7); EOS % 0.9 % (0-4.0); GRAN # 6.7 (1.4-6.5); LYMPH # 1.4 (1.2-3.4); LYMPH % 14.9 % (20.0-51.0); MEAN CELL VOLUME 92 fl (80.0-100.0); MEAN CORPUSCULAR HGB CONC 33 g/dl (33.0-37.0); MEAN PLATELET VOLUME 10.7 fl (7.4-10.4); MONO # 0.8 (0.1-0.6); PLATELET COUNT 169 K/mm3 (130-400); RED BLOOD COUNT 2.62 M/mm3 (4.20-5.60); REDCELL DISTRIBUTION WIDTH-CV 15.1 % (11.5-14.5)
[2019-10-04 06:12] LABS: HEMATOCRIT 24.1 % (42.0-52.0); HEMOGLOBIN 7.9 g/dl (13.5-18.0); MEAN CORPUSCULAR HEMOGLOBIN 30 pg (27.0-31.0)
[2019-10-04 06:25] LABS: CALCIUM 8.4 mg/dL (8.4-10.2); CREATININE, serum 1.42 (0.66-1.25)
--- NOTE | 2019-10-04 09:25 | NUR ---
PT DOING WELL. HE IS ABLE TO MOVE INDEPENDENTLY IN HIS BED. FEELING VERY TIRED TODAY. H/H 7.9/24.1. REFUSED THERAPY. ATE 100% MEAL. REFUSED SCD'S, LEGS ELEVATED AND ON PILLOWS. GENERALIZED EDEMA. FAMILY HERE VISITNG. CALL LIGHT IN REACH, ALARMS ON.
--- NOTE | 2019-10-04 14:11 | NUR ---
PT ABLE TO TRANSFER WITH SBA FROM BED TO CHAIR. ALARMS ON
[2019-10-04 16:25] VITALS: BP 120/60; PULSE 94; TEMP 97.7
--- NOTE | 2019-10-04 18:16 | NUR ---
PT HAS BEEN UP IN THE RECLINER FOR THE LAST HALF OF THE SHIFT. HE CALLS FOR ASSIST WHEN NEEDED. HE HAD A MED GREENISH STOOL THIS AFTERNOON. AREA WAS CLEANED AND CREAM APPLIED TO HIS BOTTOM. HIS GATE WHEN AMBULATING TO THE BATHROOM WAS STEADY UNTIL HE TURNED AND THEN HE WAS SLIGHTLY WOBBLEY. CALL LIGHT AND ALARMS ARE ON.
--- NOTE | 2019-10-04 20:30 | NUR ---
Patient ambulates with CGA and walker to the bathroom. Min assist with pullup down and nurse removes/applies attends. Patient has scant dk brown bm and wipes self. Does HS care sitting in wheelchair at sink/rests back in bed. SCD'S applied. Denies pain. HS meds all reviewed and given.
--- NOTE | 2019-10-04 21:30 | NUR ---
Patient rests in bed. CPAP on.
--- NOTE | 2019-10-05 01:11 | NUR ---
Awake and states dozing off and on. Urinal emptied.
--- NOTE | 2019-10-05 03:01 | NUR ---
Rests with eyes closed. CPAP on.
[2019-10-05 03:43] VITALS: BP 112/69; PULSE 88; TEMP 97.2
--- NOTE | 2019-10-05 07:28 | NUR ---
Sitting up in chair. Denies pain. Says he overall feels good this morning. Contacted Dr. Bowers and clarified some medications to hold, BP and ASA, and also reordered ADA diet for patient. Patient informed of this. Verbalizes understanding and denies needs at this time.
[2019-10-05 08:22] LABS: BASO % 0.6 % (0.0-2.0); EOS # 0.2 (0.0-0.7); GRAN # 4.5 (1.4-6.5); GRAN % 65.1 % (42.2-75.2); LYMPH # 1.4 (1.2-3.4); LYMPH % 20.2 % (20.0-51.0); MEAN CELL VOLUME 93 fl (80.0-100.0); MEAN CORPUSCULAR HGB CONC 33 g/dl (33.0-37.0); MEAN PLATELET VOLUME 10.7 fl (7.4-10.4); MONO # 0.7 (0.1-0.6); MONO % 9.9 % (1.7-9.3); PLATELET COUNT 195 K/mm3 (130-400); RED BLOOD COUNT 2.53 M/mm3 (4.20-5.60); REDCELL DISTRIBUTION WIDTH-CV 15.6 % (11.5-14.5)
[2019-10-05 08:26] LABS: HEMATOCRIT 23.5 % (42.0-52.0); HEMOGLOBIN 7.8 g/dl (13.5-18.0); MEAN CORPUSCULAR HEMOGLOBIN 31 pg (27.0-31.0)
--- NOTE | 2019-10-05 09:00 | NUR ---
Sitting up in chair. Assisted patient with bed bath. Patient transfers with stand by assist of one to wheelchair. Patient scoots wheelchair to sink in room and brushes teeth and shaves. Returns back to chair. Says that he feels pretty good today. Denies further needs.
--- NOTE | 2019-10-05 13:01 | NUR ---
Sitting up in chair. Explain to the patient that his blood count levels are about the same as they were yesterday. Explain that they will probably repeat the lab in the morning. Offered to assist patient into bed and the patient declines at this time and wants to remain sitting up in chair. Denies further needs at this time.
--- NOTE | 2019-10-05 16:06 | NUR ---
Sitting up in chair watching TV and talking on cell phone. Says that he continues to feel good and denies any needs at this time.
[2019-10-05 16:17] VITALS: BP 124/70; PULSE 107; TEMP 97.5
--- NOTE | 2019-10-05 17:18 | NUR ---
Sitting up in chair. Denies pain. Explains that he will stay in chair until after his evening meds are given. Denies further needs at this time.
--- NOTE | 2019-10-05 19:30 | NUR ---
PATIENT SITTING UP IN RECLINER CHAIR DURING SHIFT CHANGE REPORT FROM DAY SHIFT NURSE. CHAIR ALARM ON. NO NEEDS REPORTED AT TIME OF REPORT.
--- NOTE | 2019-10-06 01:34 | NUR ---
PATIENT RESTING WITH EYES CLOSED, DOES NOT AWAKEN WHEN ROOM ENTERED, CONTINUES WEARING CPAP, BREATHING NONLABORED AND EVEN, BED ALARM ON.
[2019-10-06 03:43] VITALS: BP 101/64; PULSE 105; TEMP 97.5
--- NOTE | 2019-10-06 03:46 | NUR ---
PATIENT UP IN RECLINER CHAIR PER REQUEST DUE TO BACK DISCOMFORT, AFTER TAKING TYLENOL EARLIER. REPORTS BACK FELT BETTER AFTER SITTING UP.
--- NOTE | 2019-10-06 04:33 | NUR ---
UP IN CHAIR, EYES CLOSED, BREATHING NONLABORED/EVEN, CHAIR ALARM ON.
--- NOTE | 2019-10-06 06:07 | NUR ---
PATIENT TRANSFERED FROM RECLINER CHAIR TO WHEEL CHAIR PER PATIENT REQUEST, CHANGED FROM YELLOW GOWN INTO OWN PAJAMA PANTS AND ZIPPED UP HOODIE WITH STAFF ASSISTING, STILL KEPT YELLOW SOCKS ON, CHAIR ALARM IN W/C ON. REPORTS NO DISCOMFORT AT THIS TIME. PATIENT SHAVING AT SINK AND PERFORMING ORAL CARE WITH NO ASSIST.
[2019-10-06 06:38] LABS: BASO % 0.3 % (0.0-2.0); EOS # 0.2 (0.0-0.7); EOS % 2.9 % (0-4.0); GRAN % 70.6 % (42.2-75.2); LYMPH # 1.2 (1.2-3.4); LYMPH % 16.4 % (20.0-51.0); MEAN CELL VOLUME 97 fl (80.0-100.0); MEAN CORPUSCULAR HGB CONC 32 g/dl (33.0-37.0); MEAN PLATELET VOLUME 10.8 fl (7.4-10.4); MONO # 0.6 (0.1-0.6); PLATELET COUNT 188 K/mm3 (130-400); RED BLOOD COUNT 2.49 M/mm3 (4.20-5.60); REDCELL DISTRIBUTION WIDTH-CV 16.3 % (11.5-14.5)
[2019-10-06 06:47] LABS: HEMATOCRIT 24.1 % (42.0-52.0); HEMOGLOBIN 7.7 g/dl (13.5-18.0); MEAN CORPUSCULAR HEMOGLOBIN 31 pg (27.0-31.0)
[2019-10-06 06:48] LABS: CALCIUM 8.8 mg/dL (8.4-10.2); CREATININE, serum 1.44 (0.66-1.25); MAGNESIUM 2.1 mg/dL (1.6-2.3); POTASSIUM 4.2 mmol/L (3.4-5.0)
--- NOTE | 2019-10-06 07:26 | NUR ---
PATIENT UP IN W/C DURING SHIFT CHANGE REPORT GIVEN TO DAY SHIFT NURSE. CHAIR ALARM ON.
[2019-10-06 08:00] VITALS: BP 118/66
--- NOTE | 2019-10-06 09:27 | NUR ---
Patient working with PT at this time. Denies pain or questions this morning.
--- NOTE | 2019-10-06 14:39 | NUR ---
Machine Skiver contacted Angelina at [facility] who advised she did not receive referral for patient. SW resent the referral and Angelina confirmed she received it. Angelina advised that they will likely be able to accept patient. SW met with patient to provide update on home health and follow up from the weekend. Patient reports it was discovered on Sunday that he had an ulcer and had to receive blood over the weekend. Patient states he is feeling better today. Patient does not have any questions or concerns at this time. SW to continue to follow.
[2019-10-06 18:15] VITALS: BP 113/65; PULSE 110; TEMP 97.8
--- NOTE | 2019-10-06 19:40 | NUR ---
PATIENT UP IN CHAIR DURING SHIFT CHANGE REPORT FROM DAY SHIFT NURSE. CHAIR ALARM ON.
--- NOTE | 2019-10-06 20:39 | NUR ---
Patient attended all therapies today. He was a one SBA with ambulating to the bathroom and going from sit to standing position. Patient denied questions this shift. He reported that he was very tired following therapies today. He is hoping to be able to go home on Sunday.
[2019-10-06 21:00] VITALS: BP 135/78
--- NOTE | 2019-10-06 21:00 | NUR ---
PATIENT PUT TO BED, BED ALARM ON. REQUESTED/GIVEN TYLENOL FOR BACK PAIN, SEE eMAR.
--- NOTE | 2019-10-07 04:00 | NUR ---
PATIENT RESTING UP IN CHAIR WITH EYES CLOSED, DOES NOT AWAKEN WHEN ROOM ENTERED, CHAIR ALARM ON.
[2019-10-07 05:57] VITALS: BP 126/67; PULSE 97; TEMP 97.4
--- NOTE | 2019-10-07 11:48 | NUR ---
Patient resting in recliner at this time, call light in reach and chair alarm on. Discussed the scheduling of his f/u appointments with patient. Patient requested to see Dr. Bradford at the [place] office. Will call to make these appointments today.
[2019-10-07 15:58] VITALS: BP 125/76; PULSE 112; TEMP 97.5
--- NOTE | 2019-10-07 18:11 | NUR ---
Called and set up follow up appointments for patient. Patient is currently resting in his recliner at this time, call light in reach and alarm set. Denied pain this shift.
--- NOTE | 2019-10-07 20:30 | NUR ---
Patient stands to use urinal. Steady stance. Undresses self and applies gown with observation and use of adaptive tool to remove pants. Rests self back in bed. HS meds and insulin reviewed and given. Takes sandwich for snack. Denies pain. Applies own CPAP.
--- NOTE | 2019-10-08 03:30 | NUR ---
Patient rested in bed with cpap on until now. Assisted to recliner per request.
[2019-10-08 04:28] VITALS: BP 113/73; PULSE 111; TEMP 97.9
--- NOTE | 2019-10-08 05:53 | NUR ---
Patients accu check 69 and 4oz oj given.
--- NOTE | 2019-10-08 14:24 | NUR ---
Called Dr. Harrington's office to schedule f/u MRI, they had no record, faxed notes from Dr. Harrington while pt was at [place].
--- NOTE | 2019-10-08 15:55 | NUR ---
Logistician met with patient to provide copy of team conference notes. SW reviewed patient's discharge date of Sunday. Referral has been sent to [facility] and they are likely able to accept. Patient inquired about time of discharge on Sunday. SW advised it would likely be in the afternoon. Patient has no further questions or concerns at this time. SW to continue to follow.
[2019-10-08 16:47] VITALS: BP 126/80; PULSE 108; TEMP 98.6
--- NOTE | 2019-10-08 20:36 | NUR ---
Report to CHRISTINE Brown. Pt beronica mod I in rm w/ rolo.
--- NOTE | 2019-10-09 01:36 | NUR ---
Patient has been resting in recliner with eyes closed. Respirations with ease. CPAP off. Has denied pain. Has been mod I in room with walker.
[2019-10-09 02:58] VITALS: BP 122/84; PULSE 109; TEMP 97.6
--- NOTE | 2019-10-09 03:00 | NUR ---
Patient awake and states has slept well up in recliner. Denies pain or needs.
--- NOTE | 2019-10-09 15:07 | NUR ---
[address] Deputy Clerk contacted [facility] to touch base and advised an order would be faxed tomorrow as soon as it's completed. SW presented and explained IM form to patient who verbalized understanding and provided signature. SW placed original on chart and provided copy to patient. SW to continue to follow.
[2019-10-09 15:14] VITALS: BP 119/83; PULSE 106; TEMP 97.4
--- NOTE | 2019-10-09 20:00 | NUR ---
BEDSIDE SHIFT REPORT EARLIER FROM ALBA Jenkins RN. PT SITTING IN RECLINER. CHEERFUL. PALE WITH SL PINK IN CHEEKS. PT PLANS TO SLEEP IN CHAIR. REARRANGED TABLES TO HAVE ACCESS TO CPAP. PT MOD IN ROOM W/ WALKER. PT FEELS SAFE TO DO SO. SEE SHIFT ASSESSMENT. PT REMAINS TACHY BUT REG. CALL LIGHT IN REACH.
--- NOTE | 2019-10-09 21:17 | NUR ---
No acute changes this shift. Pt beronica mod I in rm w/ walker. Bedside report to CHRISTINE Witt.
[2019-10-10 03:45] VITALS: BP 117/72; PULSE 99; TEMP 97.4
--- NOTE | 2019-10-10 06:24 | NUR ---
PT SLEPT IN RECLINER LAST NIGHT. USED CPAP. DENIES PAIN. UP TO SINK FOR AM CARES. NO NEEDS AT THIS TIME.
[2019-10-10 07:21] LABS: BASO % 0.6 % (0.0-2.0); EOS # 0.2 (0.0-0.7); EOS % 4.8 % (0-4.0); GRAN # 3.2 (1.4-6.5); GRAN % 66.1 % (42.2-75.2); LYMPH # 0.9 (1.2-3.4); LYMPH % 18.2 % (20.0-51.0); MEAN CELL VOLUME 101 fl (80.0-100.0); MEAN CORPUSCULAR HGB CONC 30 g/dl (33.0-37.0); MONO # 0.5 (0.1-0.6); MONO % 9.7 % (1.7-9.3); PLATELET COUNT 249 K/mm3 (130-400); RED BLOOD COUNT 2.69 M/mm3 (4.20-5.60); REDCELL DISTRIBUTION WIDTH-CV 18.8 % (11.5-14.5)
[2019-10-10 07:27] LABS: HEMATOCRIT 27.1 % (42.0-52.0); HEMOGLOBIN 8.1 g/dl (13.5-18.0); MEAN CORPUSCULAR HEMOGLOBIN 30 pg (27.0-31.0)
[2019-10-10 07:31] LABS: CALCIUM 8.9 mg/dL (8.4-10.2); CREATININE, serum 1.55 (0.66-1.25); MAGNESIUM 2.3 mg/dL (1.6-2.3); POTASSIUM 4.4 mmol/L (3.4-5.0)
[2019-10-10] MEDS ORDERED: CLOTRIM ANTIFUNGAL1% TP (08:26)
[2019-10-10] MEDS ORDERED: PROTONIX 40MG T40 MG PO (08:27)
[2019-10-10] MEDS ORDERED: FERROUS SU325 MG/TAB PO (08:28)
[2019-10-10] MEDS ORDERED: TOPROL XL 25MG25 MG PO (08:29)
--- NOTE | 2019-10-10 09:52 | NUR ---
Patient resting in recliner with by his side. He spoke with dietary this morning. Tolerated breakfast well. Was independent on grooming. Denies any pain. Dr. Castillo has completed his portion of the discharge this morning. Ana M was called to remove PICC to right upper arm. Awaiting her arrival. Will review discharge meds with patient and .
--- NOTE | 2019-10-10 11:11 | NUR ---
Supervisor Dials contacted Lilia at [facility] and faxed discharge orders. No additional needs at this time.
--- NOTE | 2019-10-10 11:28 | NUR ---
Patient Health Summary, Discharge Summary, and Home Meds printed and reviewed with patient and . Stressed importance of follow up appointments. Belongings gathered by AURELIANO/Emi and including glasses, phone, fill technician, clothes and other misc. items. Patient transported via wheelchair by Gladis and seatbelted for ride home with . Patient and denied any questions.
--- NOTE | 2019-10-10 11:39 | NUR ---
PICC line to patient JOJO was removed prior to discharge. He received his discharge instructions.
== END 2019-10-10 11:00 | disposition home health service (06) | DRG 56 ==
PROVIDERS: Internal Medicine Gastroenterology; ADMIT Internal Medicine
PROC: 0DJ08ZZ Inspection of Upper Intestinal Tract, Via Natural or Artificial Opening Endoscopic (ICD-10-PCS; 2019-10-03)
PROC: 02HV33Z Insertion of Infusion Device into Superior Vena Cava, Percutaneous Approach (ICD-10-PCS; principal; 2019-10-03 12:00)
DX: I69.154 Hemiplegia and hemiparesis following nontraumatic intracerebral hemorrhage affecting left non-dominant side (principal); K26.4 Chronic or unspecified duodenal ulcer with hemorrhage; I48.91 Unspecified atrial fibrillation; I25.10 Atherosclerotic heart disease of native coronary artery without angina pectoris; E78.5 Hyperlipidemia, unspecified; E11.22 Type 2 diabetes mellitus with diabetic chronic kidney disease; I12.9 Hypertensive chronic kidney disease with stage 1 through stage 4 chronic kidney disease, or unspecified chronic kidney disease; D50.0 Iron deficiency anemia secondary to blood loss (chronic); N18.9 Chronic kidney disease, unspecified; M50.30 Other cervical disc degeneration, unspecified cervical region; Z79.01 Long term (current) use of anticoagulants; Z79.82 Long term (current) use of aspirin; Z79.4 Long term (current) use of insulin; Z85.46 Personal history of malignant neoplasm of prostate; Z87.891 Personal history of nicotine dependence; Z95.818 Presence of other cardiac implants and grafts
CPT/HCPCS: 99222-AI; 99231-AI; 99232-AI; 99233-AI; 99239; C1751; C9113; J1815; J2704; J7030; P9016

== ENCOUNTER 2020-09-03 07:29 | Outpatient (CLI) | payer MEDICARE, OTHER ==
[~2020-09-03] VITALS: Ht 172.8 cm; Wt 105.5 kg
[~2020-09-03 07:29] MED LIST changes: +CATAPRES-TTS 10.1 M1 TD; +CLOTRIM ANTIFUNGAL1% TP; +COZAAR 50MG50 MG/TAB PO; +DOXYCYCLINE 10100 MG PO; +DULCOLAX STOOL100 MG PO; +FERROUS SU325 MG/TAB PO; +HUMALOG100 U/ML SQ; +LEADER CLE17 GM/Dose PO; +LEVEMIR SQ; +LIPITOR 40MG TA40 MG PO; +LOPRESSOR100 MG PO; +MELATONIN5 M1 PO; +OZEMPIC0.25 MG/0. SQ; +PACERONE400 MG PO; +PRESERVISION1 SGL PO; +PROTONIX 40MG T40 MG PO; +TOPROL XL 25MG25 MG PO; +TOPROL XL200 MG PO; +TYLENOL 325MG325 MG PO; +ZOFRAN ODT4 MG PO
[2020-09-03 08:35] LABS: HEMATOCRIT 46.2 % (42.0-52.0); HEMOGLOBIN 15.4 g/dl (13.5-18.0); MEAN CELL VOLUME 94 fl (80.0-100.0); MEAN CORPUSCULAR HEMOGLOBIN 31 pg (27.0-31.0); MEAN CORPUSCULAR HGB CONC 33 g/dl (33.0-37.0); MEAN PLATELET VOLUME 10.4 fl (7.4-10.4); PLATELET COUNT 222 K/mm3 (130-400); RED BLOOD COUNT 4.94 M/mm3 (4.20-5.60); REDCELL DISTRIBUTION WIDTH-CV 13.3 % (11.5-14.5)
[2020-09-03 08:37] VITALS: BP 141/106; PULSE 80; TEMP 97.7
[2020-09-03] MEDS ORDERED: ASPIRIN E.C. 8181 MG PO (08:41)
[2020-09-03] MEDS ORDERED: PACERONE200 MG PO (08:41)
[2020-09-03] MEDS ORDERED: COLACE 100100 MG/CAP PO (08:41)
[2020-09-03 08:44] LABS: CALCIUM 9.2 mg/dL (8.4-10.2); CREATININE, serum 1.64 (0.66-1.25)
[2020-09-03] MEDS ORDERED: ONE-A-DAY ESSE1 EACH PO (08:45)
[2020-09-03] MEDS ORDERED: TOPROL XL 25MG25 MG PO (08:45)
[2020-09-03] MEDS ORDERED: OCUVITE1 TA1 PO (08:46)
[2020-09-03] MEDS ORDERED: MIRALAX PA17 GM/Dose PO (08:49)
[2020-09-03] MEDS ORDERED: OZEMPIC0.25 MG/0. SQ (08:49)
[2020-09-03] MEDS ORDERED: ZOCOR 40MG40 MG PO (08:50)
[2020-09-03] MEDS ORDERED: REVATIO20 MG PO (08:50)
[2020-09-03] MEDS ORDERED: ELIQUIS 5MG PO (08:52)
[2020-09-03 09:02] LABS: INR 1.5 (0.8-3.0); PROTHROMBIN TIME 17.3 SECONDS (9.7-12.8)
[2020-09-03 10:30] VITALS: BP 146/107; PULSE 77
[2020-09-03 10:45] VITALS: BP 166/106; PULSE 71
--- NOTE | 2020-09-03 10:49 | NUR ---
APRESOLINE 10MG IV GIVEN ORDERED, B/R AT 166/106, REPORT TO PINO KING
[2020-09-03 10:57] VITALS: BP 138/93; PULSE 71
--- NOTE | 2020-09-03 10:59 | NUR ---
B/P AT 138/93, NO C/O,
[2020-09-03 11:00] VITALS: BP 145/99; PULSE 70
[2020-09-03 11:15] VITALS: BP 136/91; PULSE 71
--- NOTE | 2020-09-03 11:23 | NUR ---
Pt tolerating PO without issue. Able to move about room with steady gait. IV DC'd with catheter intact, bleeding controlled at site. BP improved following IV apresoline dose. Blood sugars remain stable. DC instructions reviewed with pt, who expresses understanding. He is assisted out to son's car by wheelchair with personal belongings.
== END 2020-09-03 18:00 | disposition home or self-care (01) ==
LOC: COL.RAD 07:29
PROVIDERS: Internal Medicine Cardiovascular Disease
DX: Z95.818 Presence of other cardiac implants and grafts (principal); Z20.822 Contact with and (suspected) exposure to COVID-19
CPT/HCPCS: J0360; J2704

== ENCOUNTER 2021-06-21 07:03 | Outpatient (CLI) | payer OTHER ==
[~2021-06-21] VITALS: Ht 172.8 cm; Wt 104.0 kg
[~2021-06-21 07:03] MED LIST changes: +ASPIRIN E.C. 8181 MG PO; +MIRALAX PA17 GM/Dose PO; +ONE-A-DAY ESSE1 EACH PO; +PACERONE200 MG PO
[2021-06-21 08:10] LABS: HEMATOCRIT 45.5 % (42.0-52.0); HEMOGLOBIN 14.7 g/dl (13.5-18.0); MEAN CELL VOLUME 96 fl (80.0-100.0); MEAN CORPUSCULAR HEMOGLOBIN 31 pg (27.0-31.0); MEAN CORPUSCULAR HGB CONC 32 g/dl (33.0-37.0); MEAN PLATELET VOLUME 10.4 fl (7.4-10.4); PLATELET COUNT 201 K/mm3 (130-400); RED BLOOD COUNT 4.72 M/mm3 (4.20-5.60); REDCELL DISTRIBUTION WIDTH-CV 14.1 % (11.5-14.5)
[2021-06-21 08:18] LABS: INR 1.2 (0.8-3.0); PROTHROMBIN TIME 13.1 SECONDS (9.7-12.8)
[2021-06-21] MEDS ORDERED: TYLENOL 325MG325 MG PO (08:20)
[2021-06-21] MEDS ORDERED: LASIX 40MG TABL40 MG PO (08:20)
[2021-06-21] MEDS ORDERED: DIABETA 5MG5 MG/TAB PO (08:21)
[2021-06-21] MEDS ORDERED: FERRO-TIME325 MG PO (08:21)
[2021-06-21] MEDS ORDERED: LEVEMIR100 U/ML SQ (08:22)
[2021-06-21] MEDS ORDERED: ICAPS TABLET1 EACH PO (08:22)
[2021-06-21 08:23] LABS: CALCIUM 9.2 mg/dL (8.4-10.2); CREATININE, serum 1.8 mg/dL (0.72-1.25)
[2021-06-21] MEDS ORDERED: TOPROL XL100 MG PO (08:23)
[2021-06-21] MEDS ORDERED: PACERONE200 MG PO (08:23)
[2021-06-21] MEDS ORDERED: CENTRUM SILVER1 TAB PO (08:24)
[2021-06-21] MEDS ORDERED: ASPIRIN E.C. 8181 MG PO (08:24)
[2021-06-21] MEDS ORDERED: COZAAR 50MG50 MG/TAB PO (08:25)
[2021-06-21 08:30] VITALS: BP 165/107; PULSE 89; TEMP 98.6
[2021-06-21 11:04] VITALS: BP 145/96; PULSE 86
[2021-06-21 11:15] VITALS: BP 160/105; PULSE 86
[2021-06-21 11:32] VITALS: BP 158/105; PULSE 91
[2021-06-21 11:45] VITALS: BP 154/108; PULSE 92
[2021-06-21 12:00] VITALS: BP 154/107; PULSE 81
--- NOTE | 2021-06-21 12:20 | NUR ---
Discharge instructions given to pt.Pt verbalizes understanding.INT removed,catheter tip intact.Pt escorted via wheelchair by this nurse.
== END 2021-06-21 13:00 ==
LOC: COL.RAD 07:03
PROVIDERS: Internal Medicine Cardiovascular Disease
DX: Z45.9 Encounter for adjustment and management of unspecified implanted device (principal); I44.30 Unspecified atrioventricular block; Z20.822 Contact with and (suspected) exposure to COVID-19; I48.3 Typical atrial flutter
CPT/HCPCS: J2704; J7030